=== PATIENT | male | born 1960 | race Caucasian/White ===

== ENCOUNTER 2017-07-20 14:37 | Observation (INO) | payer OTHER ==
[~2017-07-20] VITALS: Ht 180.3 cm; Wt 79.5 kg
--- NOTE | 2017-07-20 14:52 | ED.REPORT ---
HPI-Trauma Minor / Fall Date of Service Jul 20, 2017 ED Provider: Montrell Abraham DO Patient is a 57 year old male who presents to the ED via EMS s/p falling 50 feet while climbing up a mountain off rope at 0730 this morning. It is reported that he "bounced down" as opposed to directly falling 50 feet vertically. Patient reports being ambulatory approximately 2 hours after the event. He complains of R sided posterior chest pain. He denies abdominal pain, neck pain, back pain, LOC, headache, vision changes, nausea, vomiting, or any other symptoms. Nursing Notes Stated Complaint: FALL Chief Complaint: Trauma/Critical Care Nursing Notes Reviewed: Yes Allergies: Coded Allergies: No Known Allergies (Unverified , 07/20/17) Scheduled PRN Hydrocodone-Acetaminophen 5-325 mg (Hydrocodone-Acetaminophen 5-325 mg) 1 Each Tablet 1 TABLET PO Q12H PRN PRN BACK PAIN Naproxen Sodium (Naproxen Sodium) 220 Mg Capsule 220 MG PO HS PRN PRN BACK PAIN General Time Seen by MD: 14:39 Chief Complaint Fall Hx Obtained From: Patient, EMS Arrived By: Ambulance Onset Occurred: 9 - 12 hours ago Caused by: Fall from height... (40-50 feet) Location: Chest Quality: Painful Severity: Current: Moderate Severity: Maximum: Moderate Context: Immunizations Unknown Past Medical History Past Medical History palpitations - undiagnosed Past Surgical History Eye surgery Smoking History Never Smoker Social History Alcohol Use: Denies alcohol use Drug Use: Denies drug use Other Social History: From out of town Ambulatory Status Independent Review of Systems Musculoskeletal: Denies: Back pain, Neck pain Neurologic: Denies: Change LOC, Headache, Problem walking, Vision change Complete sys rev & neg: except as marked. Cardiovascular: Reports: Chest pain GI: Denies: Abdominal pain, Nausea, Vomiting Physical Exam Initial Vital Signs See paper charting Initial VS: Reviewed, Vital signs normal Skin: Warm, Dry Psychiatric: Mood/affect normal, Behavior normal, Normal thought content General/Constitutional: Awake, Alert Neck: Atraumatic, Supple, Full range of motion, No swelling, Non-tender, No midline vertebral tend Trauma - Neck Specific: Positive: Immobilized - C Collar Head / Eyes: PERRL, EOMI Left infraorbital ecchymosis Crusted blood along L parietal area nose swollen with crusted blood in nares Superficial laceration along upper L catholic area ENT: Tympanic membs NL Trauma - ENT Specific: Negative: Septal hematoma L, Septal hematoma R No septal hematoma Respiratory / Chest: Atraumatic, Breath sounds NL, Breath sounds = bilat, No respiratory distress Cardiovascular: Heart rate NL, Regular rhythm, Heart sounds NL Pulses equal in all 4 extremities R sided chest pain with ROM of R arm. Neurologic: Oriented X3, Speech NL Moving all 4 extremities Interpretation & Diagnostics Lab Results Interpretation Result Diagram: 07/20/17 1445 07/20/17 1445 Test 07/20/17 14:45 White Blood Count 10.7th/mm3 (3.8-10.1) Red Blood Count 4.58mil/mm3 (4.40-5.80) Hemoglobin 13.8g/dL (13.8-17.2) Hematocrit 38.9% (41.0-50.0) Mean Corpuscular Volume 84.9fL (81-100) Mean Corpuscular Hemoglobin 30.1pg (27.0-35.0) Mean Corpuscular Hemoglobin Concent 35.5% (32.0-37.0) Red Cell Distribution Width 12.8% (12.3-15.4) Platelet Count 175bil/L (150-400) Neutrophils (%) (Auto) 81.4% (40-74) Lymphocytes (%) (Auto) 7.5% (14-46) Monocytes (%) (Auto) 10.7% (4-12) Eosinophils (%) (Auto) 0% (0-5) Basophils (%) (Auto) 0.1% (0-3) Prothrombin Time 10.4sec (8.1-12.5) Prothromb Time International Ratio 0.97ratio Activated Partial Thromboplast Time 26.0sec (22.8-33.0) Sodium Level 137mEq/L (134-144) Potassium Level 4.0mEq/L (3.5-5.2) Chloride Level 101mEq/L (97-108) Carbon Dioxide Level 21mmol/L (18-29) Blood Urea Nitrogen 40mg/dL (6-24) Creatinine 0.81mg/dL (0.76-1.27) Estimat Glomerular Filtration Rate 104mL/min (>59) Glucose Level 116mg/dL (60-99) Calcium Level 9.0mg/dL (8.5-10.1) Total Bilirubin 1.5mg/dL (0.0-1.2) Aspartate Amino Transf (AST/SGOT) 77U/L (0-50) Alanine Aminotransferase (ALT/SGPT) 66U/L (0-44) Alkaline Phosphatase 80U/L (25-160) Total Protein 7.2g/dL (6.4-8.4) Albumin 4.3g/dL (3.4-5.0) Hold Hardin Top Tube Received (Received) Lab Results Interpretation: FACE CT: IMPRESSION: 1. Probable minimally displaced fractures of the nasal bones and a small fracture of the anterior bony nasal septum. There is extensive associated soft tissue swelling and partial fluid opacification within the sinus cavities anteriorly. Dictated by: Javon Torres M.D. on 07/20/2017 at 16:25 Approved by: Javon Torres M.D. on 07/20/2017 at 16:28 CT Head Interpretation IMPRESSION: 1. No acute intracranial abnormality. 2. Perinasal soft tissue swelling with suggestion of minimally displaced nasal bone fractures. Dictated by: Javon Torres M.D. on 07/20/2017 at 16:21 Approved by: Javon Torres M.D. on 07/20/2017 at 16:24 Study: Head CT no contrast Interpretation / Wet Read by: Interpret - Radiologist, Discussed w radiologist CT Abd / Pelvis Interpretation IMPRESSION: 1. Mildly displaced fractures of the right 11th ribs laterally with small associated loculated right hemothorax. No definite pneumothorax. 2. Associated right lung opacities are consistent with atelectasis with possible mild pulmonary contusions. 3. Findings discussed with Dr. Pitt on 07/20/17 at 4:35 PM. 4. Bilateral pars defects at L5-S1 with mild grade 1 anterolisthesis. Dictated by: Javon Torres M.D. on 07/20/2017 at 16:31 Approved by: Javon Torres M.D. on 07/20/2017 at 16:48 Study type: Abdominal CT IV contrast Interpretation / Wet Read by: Interpret - Radiologist, Discussed w radiologist CT C-Spine Interpretation IMPRESSION: 1. No acute fracture or subluxation. 2. Extensive multilevel degenerative changes throughout the cervical spine as described. 3. Minimal multilevel spondylolisthesis likely degenerative in etiology. Dictated by: Javon Torres M.D. on 07/20/2017 at 16:28 Approved by: Javon Torres M.D. on 07/20/2017 at 16:31 Study type: CT no contrast Interpretation / Wet Read by: Interpret - Radiologist, Discussed w radiologist Re-Eval/Medical Decision Med Decision/Clinical Course Fall while mountaineering from about 50 feet. Patient sustained multiple rib fractures with pulmonary contusions, nasal bone fractures and multiple superficial abrasions none of which needed suturing. Will plan on admitting. Re-Evaluation/Progress : Time of Eval: 16:35 Re-Evaluation/Progress Note: Discussed plan for admission. Patient understands and agrees with plan. All questions addressed at this time. Blood was cleared from nares. No septal hematoma present. Consultation #1: Call Returned at: 16:33 Note: Discussed imaging with radiologist. Consultation #2: Referral / Consult Name: Akira Barroso MD Consulted With: Surgeon Call Returned at: 16:42 Design Technician: Will see patient, Agrees with eval, Agrees with plan, Accepts admit Note: Discussed pt's case. Accepts admit. Counseled Regarding: Diagnosis, Lab results, Need for admission Discharge & Departure Impression: Primary Impression: Rib fractures Encounter type: initial encounter Rib fracture type: multiple ribs Fracture type: closed Laterality: unspecified laterality Qualified Code: S22.49XA - Multiple fractures of ribs, unspecified side, initial encounter for closed fracture Additional Impressions: Nasal fracture Encounter type: initial encounter Fracture type: closed Qualified Code: S02.2XXA - Fracture of nasal bones, initial encounter for closed fracture Hemothorax Disposition: ADMITTED TO HOSPITAL Discharge Condition All VS Reviewed: Yes Condition: Stable Scribe Attestation Portions of this note were transcribed by Iris Gamez. I, Dr. Abraham personally performed the history, physical exam and medical decision-making; I reviewed and confirmed the accuracy of the information in the transcribed note. Signed: Amaury Roy, 07/20/17 Montrell Abraham DO Jul 20, 2017 14:52 IRIS GAMEZ Jul 20, 2017 14:58
[2017-07-20] MEDS ORDERED: 0.9% Sodium Chloride 1,000 ML IV ONE (14:53)
[2017-07-20] MEDS ORDERED: HYDROmorphone 0.5 mg/0.5 mL iSecure Syringe IVPUSH PRN (14:55)
[2017-07-20] MEDS ORDERED: Ondansetron 2 mg/mL 2 mL Inj IVPUSH PRN ×3 (14:55→17:45)
[2017-07-20] MEDS ORDERED: TdaP Vaccine 0.5 mL Inj IM ONE (14:55)
[2017-07-20 15:00] LABS: BASOPHILS % (AUTO) 0.1 % (0-3); EOSINOPHILS % (AUTO) 0 % (0-5); MONOCYTES % (AUTO) 10.7 % (4-12); Mean Corpuscular Hemoglobin 30.1 pg (27.0-35.0); Mean Corpuscular Volume 84.9 fL (81-100); NEUTROPHILS % (AUTO) 81.4 % (40-74); Platelet Count 175 bil/L (150-400)
[2017-07-20 15:19] LABS: INR 0.97 ratio
--- NOTE | 2017-07-20 16:26 | DRSVH ---
PROCEDURE: CT BRAIN WITHOUT CONTRAST ([id number]) INDICATIONS: fall from 50 ft while hiking head/right chest pain TECHNIQUE: Noncontrast 4.5 mm thick angled axial sections acquired from the foramen magnum to the vertex, with c oronal reformats. COMPARISON: [facility], CT, CT FACE WO CON, 07/20/2017, 15:35. FINDINGS: Image quality: Excellent. CSF spaces: Basal cisterns are patent. No extra-axial fluid collections. Ventricles are normal in size and shape. Brain: No intracranial hemorrhage, mass, or mass effect. Roca-white matter interface is preserved. Skull and face: Calvarium appears intact. There is soft tissue swelling around the nasal bones with suggestion of minimally displaced fractures. There is fluid within the nasal cavities anteriorly. There is a scleral band demonstrated along the right globe. Sinuses: Visualized sinuses and mastoids are clear. IMPRESSION: 1. No acute intracranial abnormality. 2. Perinasal soft tissue swelling with suggestion of minimally displaced nasal bone fractures. Dictated by: Javon Torres M.D. on 07/20/2017 at 16:21 Approved by: Javon Torres M.D. on 07/20/2017 at 16:24
--- NOTE | 2017-07-20 16:29 | DRSVH ---
PROCEDURE: CT FACE WITHOUT CONTRAST ([id number]) INDICATIONS: fall from 50 ft while hiking head/right chest pain TECHNIQUE: Noncontrast 1.5 mm thick axial images acquired from the mandible through the frontal sinuses, with co linnea and sagittal reformatting. For radiation dose reduction, the following was used: automated ex posure control. COMPARISON: None. FINDINGS: Image quality: Excellent. Bones and teeth: There is minimal irregularity along the nasal bones which may reflect minimally dis placed fractures. There is also a small fracture of the bony nasal septum distally. Orbital palma a re intact. Sinus palma show no fracture or deformity. Visualized portions of the mandible demonstra te no fractures or subluxation. Zygomatic arches are intact. Pterygoid plates are intact. Visualiz ed portions of the skull base and auditory canals are intact. Sinuses: Paranasal sinuses demonstrate mild mucosal thickening within the ethmoid sinuses and fronto ethmoidal recesses. Mastoid air cells are aerated. Soft tissues: There is extensive perinasal soft tissue swelling. There is partial fluid opacificati on within the nasal cavities anteriorly. The globes appear intact with a scleral band demonstrated o n the right. No intraorbital fluid collections. Vascular: Visualized vascular structures appear normal in the absence of contrast. Bony vascular fo ramina and canals are intact. IMPRESSION: 1. Probable minimally displaced fractures of the nasal bones and a small fracture of the anterior acacia ny nasal septum. There is extensive associated soft tissue swelling and partial fluid opacification within the sinus cavities anteriorly. Dictated by: Javon Torres M.D. on 07/20/2017 at 16:25 Approved by: Javon Torres M.D. on 07/20/2017 at 16:28
--- NOTE | 2017-07-20 16:32 | DRSVH ---
PROCEDURE: CT CERVICAL SPINE WITHOUT CONTRAST ([id number]) INDICATIONS: fall from 50 ft while hiking head/right chest pain TECHNIQUE: Noncontrast 3 mm thick sections acquired from the skull base to the T4 level. Sagittal and coronal r eformats were then constructed. For radiation dose reduction, the following was used: automated exp osure control, adjustment of mA and/or kV according to patient size. COMPARISON: None. FINDINGS: Image quality: Excellent. Bones: No fractures or dislocations. There is moderate degeneration at the atlantoaxial junction. There is multilevel disc space narrowing throughout the cervical spine including moderate to severe n arrowing at C5-C6 and C6-C7 with complete sclerosis and osteophytosis. There is mild multilevel unco vertebral joint and facet arthropathy also demonstrated. Minimal anterolisthesis is demonstrated at C3-C4 and C4-C5 as well as minimal retrolisthesis at C5-C6 and C6-C7. Findings are likely degenerati ve in etiology. Visualized superior ribs are intact. Soft tissues: Prevertebral soft tissues are normal in thickness. No paravertebral hematomas. No ap ical pneumothoraces. IMPRESSION: 1. No acute fracture or subluxation. 2. Extensive multilevel degenerative changes throughout the cervical spine as described. 3. Minimal multilevel spondylolisthesis likely degenerative in etiology. Dictated by: Javon Torres M.D. on 07/20/2017 at 16:28 Approved by: Javon Torres M.D. on 07/20/2017 at 16:31
--- NOTE | 2017-07-20 16:49 | DRSVH ---
PROCEDURE: CT CHEST, ABDOMEN AND PELVIS WITH CONTRAST ([id number]) INDICATIONS: fall from 50 ft while hiking head/right chest pain TECHNIQUE: After the administration of intravenous contrast, 5 mm thick sections acquired from the lung apices t o the symphysis. 5 mm thick coronal and sagittal reformats were acquired. Additional 7 mm thick cor onal maximum intensity projection (MIP) reformats acquired through the lungs. Optional 10-minute del ayed imaging may be performed from the kidneys to the bladder. For radiation dose reduction, the fol lowing was used: automated exposure control, adjustment of mA and/or kV according to patient size. COMPARISON: None. FINDINGS: Image quality: Excellent. CHEST: Lungs: There is a small loculated right pneumothorax laterally. There are associated linear opaciti es compatible with atelectasis or possible pulmonary contusions. No definite pneumothorax. There is mild dependent atelectasis also demonstrated in the left lung. Central and peripheral airways appea r patent and normal in caliber. Mediastinum: No mediastinal hematomas. Heart size is normal. No pericardial effusion. Thoracic ao rta and pulmonary arteries demonstrate normal size and enhancement. No mediastinal or hilar adenopat hy. Esophagus is normal in caliber. No hiatal hernia. Chest wall: No rib fractures. No subcutaneous emphysema. No axillary or supraclavicular adenopathy . Thyroid gland demonstrates no discrete nodules. ABDOMEN: Solid organs: Liver and spleen are normal in size and enhancement, without lacerations. Gallbladder is within normal limits without calcified gallstones. Biliary system is non-dilated. Pancreas enha nces normally, without transection. No adrenal hematomas. Both kidneys enhance normally, without hy dronephrosis or lacerations. There are bilateral renal cysts are Peritoneum and bowel: No free fluid or air. Small and large bowel loops demonstrate normal wall thi ckness and caliber. Nodes and vessels: No retroperitoneal or mesenteric adenopathy. Aorta and inferior vena cava are no rmal in size and enhancement. Miscellaneous: No ventral hernias. PELVIS: Genitourinary: Bladder wall thickness is normal. Miscellaneous: No inguinal hernias or adenopathy. Bones: There are mildly displaced fractures of the right ribs laterally. Pelvic ring and hip joints appear intact. No vertebral compression fractures. There are bilateral pars defects at L5-S1 with mild grade 1 anterolisthesis. IMPRESSION: 1. Mildly displaced fractures of the right 11th ribs laterally with small associated loculated right hemothorax. No definite pneumothorax. 2. Associated right lung opacities are consistent with atelectasis with possible mild pulmonary cont usions. 3. Findings discussed with Dr. Pitt on 07/20/17 at 4:35 PM. 4. Bilateral pars defects at L5-S1 with mild grade 1 anterolisthesis. Dictated by: Javon Torres M.D. on 07/20/2017 at 16:31 Approved by: Javon Torres M.D. on 07/20/2017 at 16:48
[2017-07-20] MEDS ORDERED: Alum-Mag Hydrox-Simeth 30 mL Suspension PO PRN (17:10)
[2017-07-20] MEDS ORDERED: HYDR-4003 PO (17:32)
[2017-07-20] MEDS ORDERED: NAPR220C16 PO (17:32)
[2017-07-20] MEDS ORDERED: HYDROmorphone 1 mg/mL Inj IVPUSH PRN (17:45)
[2017-07-20] MEDS ORDERED: MetoCLOpramide 5 mg/mL 2 mL Inj IVPUSH PRN (17:45)
[2017-07-20] MEDS ORDERED: Ketorolac 15 mg/mL Inj IVPUSH PRN (17:45)
[2017-07-20 18:09] VITALS: BP 153/94; PULSE 78; RESP 20; O2SAT 100
[2017-07-20 18:21] VITALS: PULSE 88
[2017-07-20] MEDS: Dextrose 5% Lactated Ringer's 1,000 ML IV SCH (18:21)
--- NOTE | 2017-07-20 18:37 | HP ---
[address] [address] HISTORY AND PHYSICAL PATIENT: ZAK TAFOYA : 1960 MR#: [id number] ADMIT: 07/20/2017 JOB ID: [id number] DATE OF SERVICE: 07/20/2017 CHIEF COMPLAINT: Right chest pain. HISTORY OF PRESENT ILLNESS: The patient is a 57-year-old man who was climbing on the approach to [facility] in the [facility]. He sustained a fall today at around 7:00 a.m. while climbing unroped on a [place]. He states that he slipped and bounced down a series of ledges, falling approximately 50 vertical feet in the end. He was ambulatory immediately after the event. Because of his location, he was evacuated by helicopter and brought in for evaluation. En route, he was complaining of mainly pain in his right chest. He has no abdominal complaints, no vision changes, no headaches, no decrease in level of consciousness. PAST MEDICAL HISTORY: Palpitations with extensive workup without underlying etiology. PAST SURGICAL HISTORY: Right eye retinal repair in childhood. MEDICATIONS: None. ALLERGIES: No known drug allergies. 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 He denies alcohol, tobacco, or illicit drug use. FAMILY HISTORY: Family history is negative for cardiac disease. REVIEW OF SYSTEMS: A 10-point review of systems is negative except as described in history of present illness. Specifically denies shortness of breath, cough. PHYSICAL EXAMINATION: Vital signs. Not recorded. General: He is sitting up on a stretcher in no acute distress. HEENT: Pupils are equally round and reactive to light. Nose is edematous. Face is stable. Neck: Trachea is midline. No jugular venous distention. Chest: He has good air movement with no wheezes. He is tender over the right lateral chest wall, but there is no significant subcutaneous emphysema. Heart: Regular rate and rhythm. No murmurs. Abdomen is soft, nontender, nondistended. Pelvis is stable. Extremities: No bony deformities. Vascular: Dorsalis pedis and posterior tibial pulses are 2/2. Radial pulses are 2/2 bilaterally. Neuro: No deficits. Psychiatric: Affect is appropriate. LABORATORIES: White count is 10.7, hematocrit 38.9, platelets 175. BUN 40, creatinine 0.81, glucose 116. Bilirubin 1.5. AST 77, ALT 66, albumin 4.3. INR 0.97. IMAGING: CT of the chest, abdomen and pelvis shows right-sided rib fractures with small associated loculated right hemothorax. There is no pneumothorax. There are right lung opacities with possible mild pulmonary contusions. CT of the cervical spine shows extensive multilevel degenerative disease, but no acute fracture or dislocation. CT of the brain shows no acute intracranial abnormality. CT of the face shows minimally displaced nasal fracture of the anterior nasal septum with soft tissue swelling. ASSESSMENT AND PLAN: A 57-year-old man status post a fall during a rock climbing outing, with injuries including right-sided rib fractures, right hemothorax, right pulmonary contusion, minimally displaced nasal bone fractures. The plan is to admit him to the hospital overnight for observation and pulmonary toilet. He understands the need for good breathing and ability to cough. We will work on pain control to that end. Incentive spirometry will be encouraged. Repeat chest x-ray will be obtained in the morning. He will be given a diet. If his respiratory status is stable tomorrow, he can likely be discharged from the hospital tomorrow. He is probably mildly dehydrated from his day out in the mountains, so he will be maintained on IV fluids overnight. Repeat blood work will be obtained in the morning including CBC, complete metabolic panel.
[2017-07-20 20:00] VITALS: PULSE 83
[2017-07-20 20:10] VITALS: PULSE 78; RESP 14; O2SAT 98
[2017-07-20 20:27] VITALS: BP 138/94; PULSE 73; RESP 20; O2SAT 99
--- NOTE | 2017-07-20 22:56 | NUR ---
Admit note: Pt admitted to room on prior shift, resting in bed upon this RNs arrival. Alert and oriented x3. Denies chest pain/shortness of breath. CPOX in use overnight to monitor oxygenation and RT brought IS to room and explained use to pt. Multiple abrasions and bruises, see skin assessment for details. IV infusing, medicated for pain and the Ativan administered just prior to this RNs arrival is allowing pt to rest, per pt report. Using call light for needs.
[2017-07-21] MEDS: Sodium Chloride LOK Flush 10 mL Syringe IVFLUSH SCH ×2 (00:30→07:52)
[2017-07-21 00:48] VITALS: BP 151/87; PULSE 70; RESP 20; O2SAT 99
[2017-07-21] MEDS: Dextrose 5% Lactated Ringer's 1,000 ML IV SCH (04:08)
[2017-07-21 04:12] VITALS: BP 137/86; PULSE 73; RESP 18; O2SAT 99
[2017-07-21 05:41] LABS: BASOPHILS % (AUTO) 0.4 % (0-3); EOSINOPHILS % (AUTO) 1.5 % (0-5); MONOCYTES % (AUTO) 14.2 % (4-12); Mean Corpuscular Hemoglobin 30.1 pg (27.0-35.0); Mean Corpuscular Volume 86.3 fL (81-100); NEUTROPHILS % (AUTO) 62.5 % (40-74); Platelet Count 151 bil/L (150-400)
--- NOTE | 2017-07-21 06:34 | NUR ---
Ambulation, Pain: Pt was able to ambulate 150 feet around the unit last night. Medicated with Toradol x1 and Oxycodone x1. Maintaining sats in the upper 90s on RA with continuous oximeter monitoring.
[2017-07-21] MEDS ORDERED: OXYC-530 PO (07:45)
[2017-07-21] MEDS ORDERED: POLY17PO6 PO (07:45)
--- NOTE | 2017-07-21 07:51 | PCM.DISURG ---
Surgical Discharge Instruction Date of Service Jul 21, 2017 Dates of Hospitalization Date of Hospital Admission Jul 20, 2017 at 17:35 Providers Admitting Physician: Akira Barroso MD Primary Care Physician: Nopkassandra Attending Physician: Akira Barroso MD Discharge Diagnosis Discharge Diagnosis right rib fractures with small hemothorax, nasal fracture Diet Discharge Diet: No restrictions Activity Discharge Activity-General: Activity as pain allows Follow Up Plan Follow Up Plan establish care with a new PCP in 2-4 weeks Call your provider for: Fever (over 101.5F) Akira Barroso MD Jul 21, 2017 07:51
--- NOTE | 2017-07-21 08:42 | DRSVH ---
PROCEDURE: X-RAY CHEST ONE VIEW, PORTABLE ([id number]) INDICATIONS: evaluate right hemothorax TECHNIQUE: One view of the chest was acquired. COMPARISON: [facility], CT, CT CHEST ABD PELVIS W CON, 07/20/2017, 15:35. FINDINGS: Surgical changes and devices: None. Lungs and pleura: Mild asymmetric right peripheral opacity is demonstrated corresponding to the nasreen pheral loculated hemothorax seen on recent CT. There is linear right basilar opacities also demonstr ated likely representing associated atelectasis. No focal consolidation. No definite pneumothorax, with the right apex partially obscured by the patient's neck soft tissues. Mediastinum: Mediastinal contours appear within normal limits. Heart size is normal. Bones and chest wall: Mildly displaced right lateral rib fractures identified on recent CT are not w ell seen on x-ray. No suspicious bony lesions. Overlying soft tissues appear unremarkable. IMPRESSION: 1. Asymmetric peripheral right opacities demonstrated corresponding to the loculated hemothorax or c hest wall hematoma seen on CT. No definite pneumothorax. Dictated by: Javon Torres M.D. on 07/21/2017 at 8:35 Approved by: Javon Torres M.D. on 07/21/2017 at 8:41
--- NOTE | 2017-07-21 09:11 | NUR ---
Social Work-screening/discharge: Data:EMR reviewed. Pt is a 57 y/o male who was admitted on 07/20/17 for Pulmonary contusion per H&P. Pt has [facility] and PCP is in [place].Pt is from [place].Pt is medically stable for discharge. Pt has been up ambulating around the unit independently. No discharge needs identified. All updated and agreeable to plan. Assessment:Pt who is independent at baseline. Plan:Pt to discharge home today via POV. No discharge needs identified. All updated and agreeable to plan. GAB Dyson
--- NOTE | 2017-07-21 09:16 | NUR ---
DISCHARGE Pt dc'd home this morning at 0915, off unit in w/c accompanied by [facility] ATTEND[facility] and friend. Vital signs stable, A&Ox4, pain is tolerable and in no apparent distress. IV dc'd intact, all belongings returned. All instructions for diet, activity, medications, prescriptions and follow up reviewed with pt, who reports understanding.
--- NOTE | 2017-07-21 11:20 | PROG NOTE ---
[address] [address] PROGRESS NOTE PATIENT: ZAK TAFOYA : 1960 MR#: [id number] ADMIT: 07/20/2017 JOB ID: [id number] DATE: 07/21/2017 SUBJECTIVE: The patient is seen in followup. He feels well today. His chest pain is well controlled with oral medications. He has no significant shortness of breath, no cough. He has no nausea. OBJECTIVE: Temperature 36.6, pulse 73, blood pressure 137/86, saturation 99% on room air. General: He is sitting up in bed, in no acute distress. Neck: Trachea is midline. No jugular venous distention. Chest: Good air movement bilaterally. Heart: Regular rate and rhythm. No murmurs. LABORATORIES: White count is 5.5, hematocrit 36.4, platelets 151. Creatinine 0.76, glucose 121. ASSESSMENT/PLAN: A 57-year-old man, status post a fall with multiple right-sided rib fractures and a small right hemothorax. He also has a nasal fracture. He is doing well clinically. He will be discharged to home today with incentive spirometry. He does not have a regular primary care provider in [place] where he lives, but he will establish care with somebody in the next few weeks.
--- NOTE | 2017-07-22 10:37 | PCM.DC.SUR ---
Discharge Summary Date of Service: Jul 22, 2017 Date of Hospital Admission: Jul 20, 2017 at 17:35 Date of Operation(s): N/A Date of Discharge: 07/21/2017 Diagnosis at Time of Discharge Primary Diagnoses: 1. Right rib fractures 2. Right pulmonary contusion 3. Small hemothorax 4. Nasal fracture Other Medical & Surgical History: Cervical degenerative disc disease Palpitations History of right eye retinal repair Problems: Operation N/A Brief History and Physical: The patient is a 57-year-old man who was climbing on the approach to [employer] in the [facility]. He sustained a fall today at around 7:00 a.m. while climbing unroped on a wendy. He states that he slipped and bounced down a series of ledges, falling approximately 50 vertical feet in the end. He was ambulatory immediately after the event. Because of his location, he was evacuated by helicopter and brought in for evaluation. En route, he was complaining of mainly pain in his right chest. He has no abdominal complaints, no vision changes, no headaches, no decrease in level of consciousness. Hospital Course: The patient was admitted with history, presentation, & workup consistent with the above listed diagnoses and was admitted to the hospital for observation & for the appropriate convalescent course which was uneventful. On hospital day # 2 the patient was feeling better without nausea, no pain, or shortness of breath. Dr. Akiar Barroso M.D. determine the patient was stable at that time for discharge from a trauma surgery standpoint. At the time of discharge the patient was voiding without difficulty, exhibiting signs of proper pulmonary & bowel function, tolerating a general diet without nausea or vomiting, ambulating without assistance, there was no significant shortness of breath, or chest pain. Dr. Barroso and the patient discussed and the patient verbalized understanding all of the postinjury care, & medication instructions, follow-up, & when to seek immediate medical attention. All questions were answered. Disposition: Home in stable condition on hospital day #2 Follow-up Plan: Establish with new PCP in 2-4 weeks Naproxen Sodium (Naproxen Sodium) 220 Mg Capsule 220 MG PO HS PRN PRN BACK PAIN (Reported) Polyethylene Glycol 3350 (Miralax) 17 Gm Powd.pack 17 GM PO DAILY oxyCODONE (oxyCODONE) 5 Mg Tablet 5-10 MG PO Q4H PRN PRN For Severe Pain Discharge Medications: See above Mike Hurt PA-C Jul 22, 2017 10:37
== END 2017-07-21 09:16 | disposition home or self-care (01) ==
LOC: EDBD 14:37 → SED 14:37 → MPC 17:35
PROVIDERS: ADMIT Student in an Organized Health Care Education/Training Program; ATTEND Student in an Organized Health Care Education/Training Program
DX: S22.41XA Multiple fractures of ribs, right side, initial encounter for closed fracture (principal); S27.1XXA Traumatic hemothorax, initial encounter; S27.321A Contusion of lung, unilateral, initial encounter; S02.2XXA Fracture of nasal bones, initial encounter for closed fracture; R07.89 Other chest pain; R00.2 Palpitations; M50.30 Other cervical disc degeneration, unspecified cervical region; W17.89XA Other fall from one level to another, initial encounter; Y93.31 Activity, mountain climbing, rock climbing and wall climbing; Y92.89 Other specified places as the place of occurrence of the external cause; Y99.9 Unspecified external cause status; Z23 Encounter for immunization
CPT/HCPCS: 36415; 70450; 70486; 71010; 71260; 72125; 74177; 80053; 85025; 85610; 85730; 86850; 90471; 90715; 94640; 96361; 96372; 96374; 96375; 96376; 99285; G0378; J1170; J1885; J2060; J2405; J7030; Q9967